=== PATIENT | female | born 1970 | race Caucasian/White ===

== ENCOUNTER 2021-06-23 19:26 | Emergency (ER) | payer SELFPAY ==
[~2021-06-23] VITALS: Ht 157.5 cm; Wt 87.1 kg
== END 2021-06-23 22:01 | disposition home or self-care (01) ==
LOC: ER 19:34
DX: K56.41 Fecal impaction (principal)
CPT/HCPCS: 99283

== ENCOUNTER 2021-06-25 14:20 | Emergency (ER) | payer OTHER ==
[~2021-06-25] VITALS: Ht 157.5 cm; Wt 87.1 kg
[2021-06-25] MEDS ORDERED: LISINOPRIL 20 MG TAB PO ONE (16:15)
[2021-06-25] MEDS ORDERED: LISINOPRIL 10 MG TAB ONE (16:25)
[2021-06-25] MEDS ORDERED: LISINOPRIL 10 MG TAB PO ONE (16:30)
== END 2021-06-25 16:21 | disposition home or self-care (01) ==
LOC: ER 16:07
DX: K56.41 Fecal impaction (principal)
CPT/HCPCS: 74018; 99283